=== PATIENT | male | born 1945 | race Caucasian/White ===

== ENCOUNTER 2020-09-10 06:15 | Day surgery (SDC) | payer BC ==
[2020-09-09 10:56] VITALS: BMI 33.7
[2020-09-10] MEDS ORDERED: Levofloxacin 500 mg/D5W 100 ml Premix Bag ONE (07:17)
[2020-09-10] MEDS ORDERED: Fentanyl 100 MCG/2 ML VIAL ONE ×4 (08:56→10:49)
[2020-09-10] MEDS ORDERED: B & O ONE (09:34)
--- NOTE | 2020-09-10 10:45 | OP ---
DATE OF PROCEDURE: 09/10/2020 SERVICES: Urology. PREOPERATIVE DIAGNOSES: BPH and prostate cancer. POSTOPERATIVE DIAGNOSIS: BPH with prostate cancer. PROCEDURE PERFORMED: Transurethral vaporization of the prostate. INDICATION FOR PROCEDURE: Mr. Hicks is a 75-year-old white male with prostate cancer with significant urinary complaints. He does have a fairly significant median lobe as well. His radiation oncologist at [facility] is concerned about radiation to the prostate causing significant bladder issues secondary to the intravesical median lobe hanging into the bladder somewhat. He has requested that I perform a transurethral vaporization of the prostate or resection of the prostate to remove the median lobe as well as alleviate the patient's urinary symptoms prior to him starting radiation for his prostate cancer. I have discussed the surgery in detail with the patient, he agreed to proceed forward. DESCRIPTION OF PROCEDURE: After identification of armband and verification of consent, the patient was brought back to the operating room, where he underwent general anesthesia with an LMA. He was placed in dorsal lithotomy position and prepped and draped in usual sterile fashion. After appropriate time-out, a lubricated 26-[place] resectoscope sheath was passed with visual obturator. There was some difficulty at the fossa navicularis, which required dilation with Leann sounds up to 28-[place]. After this, the resectoscope sheath was able to be passed relatively easily to the bulbar urethra, where there was a mild stricture noted, which was able to be navigated past without much difficulty using the resectoscope. Once inside the prostate, inspection of the prostate and bladder demonstrated what had been seen on outpatient cystoscopy, which was consistent with BPH with obstruction. The visual obturator was switched out for the bipolar button and vaporization was started on the median lobe until the entire median lobe was vaporized. Vaporization was then carried out circumferentially from the bladder neck up to the verumontanum taking care not to go past the verumontanum to injure the sphincter muscle. Vaporization was done circumferentially until we were close to but not at the capsule of the prostate. After vaporization was completed, the prostatic fossa was wide open. Meticulous hemostasis was performed near the bladder neck all the way through the tissues to the verumontanum. Upon completion, there was excellent hemostasis, very little bleeding was noted. There were no specimens. Inspection inside the prostate did not demonstrate any tissue or significant clots that may cause an obstruction. Both ureters were in orthotopic location. The resectoscope sheath was then withdrawn, and a 20-[place] two-way Caldwell catheter with 30 mL balloon was inserted into the bladder and 30 mL of sterile water placed into the balloon. The catheter was left to gravity drainage. The patient had a B and O suppository placed, then was awakened, taken to PACU for recovery in stable condition. COMPLICATIONS: None. ESTIMATED BLOOD LOSS: Minimal. RETAINED TUBES AND DRAINS: 20-[place] Caldwell catheter with 30 mL of sterile water in the balloon. SPECIMENS: None. DISPOSITION: The patient will be discharged home and follow up with me in approximately 2 weeks. His catheter is going to be removed by his , who is an RN and I have given her instructions on how to do so. Job ID: [id number]
[2020-09-10] MEDS ORDERED: Ondansetron PF 4 MG/2 ML Vial ONE (11:57)
[2020-09-10] MEDS ORDERED: Lidocaine 1% PF 5 ML VIAL ONE (11:57)
[2020-09-10] MEDS ORDERED: ePHEDrine 50 MG/ML VIAL ONE (11:57)
[2020-09-10] MEDS ORDERED: Dexamethasone 20 MG/5 ML VIAL ONE (11:57)
[2020-09-10] MEDS ORDERED: PROPOFOL 200 MG/20 ML VIAL ONE (11:57)
== END 2020-09-10 12:16 | disposition home or self-care (01) ==
LOC: SDC 06:15
PROVIDERS: ATTEND Urology
PROC: 0VT08ZZ Resection of Prostate, Via Natural or Artificial Opening Endoscopic (ICD-10-PCS; principal; 2020-09-10)
DX: C61 Malignant neoplasm of prostate (principal); N40.1 Benign prostatic hyperplasia with lower urinary tract symptoms; I48.91 Unspecified atrial fibrillation; I10 Essential (primary) hypertension; E78.00 Pure hypercholesterolemia, unspecified; M19.90 Unspecified osteoarthritis, unspecified site; Z79.01 Long term (current) use of anticoagulants; Z79.899 Other long term (current) drug therapy
CPT/HCPCS: 93005; 93010; J1100; J1956; J2405; J2704; J3010; J3490